=== PATIENT | female | born 1965 | race Caucasian/White ===

== ENCOUNTER 2017-09-27 16:25 | Emergency (ER) | payer OTHER ==
[2017-09-27 16:35] VITALS: TEMP 98.3
--- NOTE | 2017-09-27 17:33 | ED PDOC ---
HPI: Abdomen Time Seen by Provider: 09/27/17 16:51 Chief Complaint (Nursing): Abdominal Pain Chief Complaint (Provider): Abdominal pain History Per: Patient History/Exam Limitations: no limitations Onset/Duration Of Symptoms: Days (2) Additional Complaint(s): Pt reports RLQ pain X 1 month, intermittent, worsening pain X 2 days, lasts couple seconds and resolves. Denies fever, nausea, vomiting, constipation, diarrhea, vaginal discharge, dysuria, hematuria. Currently on menses. Past Medical History Reviewed: Nursing Documentation, Vital Signs Vital Signs: Last Vital Signs Temp 98.3 F 09/27/17 16:32 Pulse 75 09/27/17 16:32 Resp 16 09/27/17 16:32 BP 149/93 H 09/27/17 16:32 Pulse Ox 100 09/27/17 16:32 - Medical History PMH: No Chronic Diseases - Surgical History Surgical History: Other surgeries: Tubal ligation - Family History Family History: States: Unknown Family Hx - Living Arrangements Living Arrangements: With Family - Social History Current smoker - smoking cessation education provided: No Alcohol: None - Allergies Allergies/Adverse Reactions: Allergies Allergy/AdvReac Type Severity Reaction Status Date / Time No Known Allergies Allergy Verified 09/27/17 16:32 Review of Systems Constitutional: Negative for: Fever, Chills Cardiovascular: Negative for: Chest Pain, Palpitations Respiratory: Negative for: Cough, Shortness of Breath Gastrointestinal: Positive for: Abdominal Pain. Negative for: Nausea, Vomiting , Diarrhea Genitourinary Female: Negative for: Dysuria, Hematuria, Vaginal Discharge, Pelvic Pain, Rash Musculoskeletal: Negative for: Neck Pain, Back Pain Skin: Negative for: Rash, Lesions Neurological: Negative for: Weakness, Numbness, Headache, Dizziness Physical Exam - Reviewed Nursing Documentation Reviewed: Yes Vital Signs Reviewed: Yes - Physical Exam Appears: Positive for: Well, No Acute Distress Head Exam: Positive for: ATRAUMATIC, NORMAL INSPECTION Skin: Positive for: Normal Color, Warm, Dry Eye Exam: Positive for: Normal appearance, EOMI, PERRL Cardiovascular/Chest: Positive for: Regular Rate, Rhythm Respiratory: Positive for: Normal Breath Sounds Gastrointestinal/Abdominal: Positive for: Normal Exam, Bowel Sounds, Soft. Negative for: Tenderness, Guarding, Rebound Back: Positive for: Normal Inspection. Negative for: L CVA Tenderness, R CVA Tenderness Neurologic/Psych: Positive for: Alert, Oriented - ECG O2 Sat by Pulse Oximetry: 100 Medical Decision Making Medical Decision Makin yo female with intermittent RLQ pain. - labs - pelvic ultrasound - CT abd/pelvis - Morphine Disposition - Disposition
[2017-09-27 17:42] LABS: BASO % 0.6 % (0.0-2.0); EOS # 0.2 K/uL (0.0-0.7); EOS % 3.3 % (0.0-4.0); HEMOGLOBIN 12.6 g/dL (12.0-16.0); LYMPH # 2.5 K/uL (1.0-4.3); MEAN CELL VOLUME 88.5 fl (81.0-99.0); MEAN CORPUSCULAR HEMOGLOBIN 29.4 pg (27.0-31.0); MEAN CORPUSCULAR HGB CONC 33.3 g/dL (33.0-37.0); MEAN PLATELET VOLUME 9.9 fl (7.2-11.7); MONO # 0.3 K/uL (0.0-0.8); MONO % 4.9 % (0.0-10.0); NEUT # 3.2 K/uL (1.8-7.0); NEUT % 51.2 % (50.0-75.0); RBC 4.29 Mil/uL (3.80-5.20); RED CELL DISTRIBUTION WIDTH 13.5 % (11.5-14.5); WHITE BLOOD COUNT 6.3 K/uL (4.8-10.8)
[2017-09-27 17:45] LABS: URINE BILIRUBIN NEGATIVE (NEGATIVE); URINE BLOOD MODERATE (NEGATIVE); URINE CLARITY CLEAR (Clear); URINE COLOR STRAW (YELLOW); URINE GLUCOSE (UA) NEG (Normal); URINE LEUKOCYTE ESTERASE NEG Leu/uL (Negative); URINE PROTEIN NEGATIVE (NEGATIVE); URINE UROBILINOGEN 0.2-1.0 mg/dL (0.2-1.0)
[2017-09-27 17:51] LABS: ALB/GLOB RATIO 1.2 (1.0-2.1); ALBUMIN 4.1 g/dL (3.5-5.0); ALT/SGPT 44 U/L (9-52); AST/SGOT 33 U/L (14-36); BLOOD UREA NITROGEN 12 mg/dl (7-17); CALCIUM 8.9 mg/dL (8.4-10.2); GFR AFRICAN-AMERICAN > 60; GFR NON-AFRICAN AMERICAN > 60
[2017-09-27 18:06] LABS: PARTIAL THROMBOPLASTIN TIME 29.7 Seconds (25.6-37.1); PROTHROMBIN TIME 10.5 Seconds (9.8-13.1)
[2017-09-27] MEDS ORDERED: Iohexol 300 100 ML IJ ONE (18:13)
[2017-09-27] MEDS ORDERED: Sodium Chloride 0.9% 100 ML ONE (18:13)
--- NOTE | 2017-09-27 19:16 | CT ---
EXAM: CT Abdomen and Pelvis With Intravenous Contrast EXAM DATE/TIME: 09/27/2017 5:26 PM CLINICAL HISTORY: 52 years old, female; Pain; Abdominal pain; Localized; Right lower quadrant (rlq); Additional info: Rlq pain TECHNIQUE: Axial computed tomography images of the abdomen and pelvis with intravenous contrast. All CT scans at this facility use at least one of these dose optimization techniques: automated exposure control; mA and/or kV adjustment per patient size (includes targeted exams where dose is matched to clinical indication); or iterative reconstruction. Coronal and sagittal reformatted images were created and reviewed. COMPARISON: There are no prior studies for comparison. FINDINGS: Lung bases: Heart size is normal. There is a small hiatal hernia. There is minimal atelectasis/scarring at the lung bases. ABDOMEN: Liver: There is fatty infiltration of the liver. Gallbladder and bile ducts: unremarkable Pancreas: unremarkable Spleen: unremarkable Adrenals: unremarkable Kidneys and ureters: unremarkable Stomach and bowel: Stomach is partially distended. Rotation is normal. There is no small bowel obstruction. Ileocecal region is unremarkable. Appendix and terminal ileum are unremarkable.Colon is incompletely distended which limits evaluation. PELVIS: Appendix: See stomach and bowel Bladder: unremarkable Reproductive: Uterus is enlarged 17 x 12 x 10 cm.. Contours are nodular. There are multiple enhancing masses. There are small foci of hypervascularity within the myometrium. Adnexa are unremarkable.A vaginal tampon is in place. ABDOMEN and PELVIS: Intraperitoneal space: There is no free air or free fluid. Bones/joints: There are no acute osseous abnormalities. Soft tissues: There is a fat-containing umbilical hernia. Vasculature: Vascular structures are unremarkable. Lymph nodes: There is no pathologic adenopathy. IMPRESSION: Enlarged fibroid uterus; fatty liver; no acute solid visceral abnormality; no CT findings of appendicitis Additional nonemergent findings as described above.
--- NOTE | 2017-09-27 19:16 | ED PDOC ---
- Laboratory Results Result Diagrams: 09/27/17 17:38 09/27/17 17:38 - ECG O2 Sat by Pulse Oximetry: 100 Medical Decision Making Medical Decision Makin:00 Patient care endorsed from Dr. Taylor to Dr. Styles pending CT / US results and reevaluation. 19:15 CT Abd / Pelvis FINDINGS: Lung bases: Heart size is normal. There is a small hiatal hernia. There is minimal atelectasis/scarring at the lung bases. ABDOMEN: Liver: There is fatty infiltration of the liver. Gallbladder and bile ducts: unremarkable Pancreas: unremarkable Spleen: unremarkable Adrenals: unremarkable Kidneys and ureters: unremarkable Stomach and bowel: Stomach is partially distended. Rotation is normal. There is no small bowel obstruction. Ileocecal region is unremarkable. Appendix and terminal ileum are unremarkable. Colon is incompletely distended which limits evaluation. PELVIS: Appendix: See stomach and bowel Bladder: unremarkable Reproductive: Uterus is enlarged 17 x 12 x 10 cm.. Contours are nodular. There are multiple enhancing masses. There are small foci of hypervascularity within the myometrium. Adnexa are unremarkable.A vaginal tampon is in place. ABDOMEN and PELVIS: Intraperitoneal space: There is no free air or free fluid. Bones/joints: There are no acute osseous abnormalities. Soft tissues: There is a fat-containing umbilical hernia. Vasculature: Vascular structures are unremarkable. Lymph nodes: There is no pathologic adenopathy. IMPRESSION: Enlarged fibroid uterus; fatty liver; no acute solid visceral abnormality; no CT findings of appendicitis 19:49 US Abd / Pelvis FINDINGS: Bladder: Bladder is partially distended. Uterus: Uterus measures at least 16 x 12 x 11 cm. Texture is diffusely heterogeneous. Visualized portion of the endometrium is normal in width, 5 mm in thickness. There is a 10.4 x 8.4 x 8.3 cm fundal fibroid. Right ovary: Right ovary measures approximately 2.9 x 2 x 2.4 cm.There are multiple small follicles. There is intraovarian blood flow. Left ovary: Left ovary measures approximately 2.1 x 1.1 x 2 cm.There is expected blood flow on Doppler imaging Briefly: There is no free fluid. IMPRESSION: Enlarged fibroid uterus; no torsion 20:[address] / US results discussed with patient. 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 Final diagnosis is uterine fibroids, which was also discussed with the patient. All questions answered at this time. Scribe Attestation: Documented by Angelica Polo, acting as a scribe for Uziel Styles MD. Provider Scribe Attestation: All medical entries made by the Scribe were at my direction and personally dictated by me. I have reviewed the chart and agree that the record accurately reflects my personal performance of the history, physical exam, medical decision making, and the department course for this patient. I have also personally directed, reviewed, and agree with the discharge instructions and disposition. Disposition Counseled Patient/Family Regarding: Studies Performed, Diagnosis, Need For Followup - Clinical Impression Clinical Impression: Fibroid uterus - POA Present On Arrival: None - Disposition [facility] Manish Zepeda MD [Staff Provider] - Disposition: Routine/Home Disposition Time: 20:50 Condition: STABLE Additional Instructions: NADEEN MAY, thank you for letting us take care of you today. Your provider was Uziel Styles MD and you were treated for RT LOWER ABD PAIN. The emergency medical care you received today was directed at your acute symptoms. If you were prescribed any medication, please fill it and take as directed. It may take several days for your symptoms to resolve. Return to the Emergency Department if your symptoms worsen, do not improve, or if you have any other problems. Please contact your doctor or call one of the physicians/clinics you have been referred to that are listed on the Patient Visit Information form that is included in your discharge packet. Bring any paperwork you were given at discharge with you along with any medications you are taking to your follow up visit. Our treatment cannot replace ongoing medical care by a primary care provider outside of the emergency department. Thank you for allowing the [facility] team to be part of your care today. If you had an X-Ray or CT scan: A Radiologist will review the ED reading if any change in treatment is needed we will contact you. If you had a blood, urine, or wound culture: It will take several days for the results, if any change in treatment is needed we will contact you. Prescriptions: Naproxen [Naprosyn] 500 mg PO Q12 #14 tab Instructions: Uterine Fibroids Forms: [employer] (Mexican)
--- NOTE | 2017-09-27 19:49 | US ---
EXAM: US Us Pelvis Endovaginal Duplex Ovaries EXAM DATE/TIME: 09/27/2017 7:25 PM CLINICAL HISTORY: 52 years old, female; Pain; Abdominal pain; Right lower quadrant; Prior surgery; Surgery date: 6+ months; Surgery type: C section years ago; Additional info: Rlq pain; LMP 09/26/17 TECHNIQUE: Real-time ultrasound of the us pelvis endovaginal duplex ovaries with image documentation. COMPARISON: CT - ABD PELVIS IV CONTRAST ONLY 2017-09-27 18:22 FINDINGS: Bladder: Bladder is partially distended. Uterus: Uterus measures at least 16 x 12 x 11 cm. Texture is diffusely heterogeneous. Visualized portion of the endometrium is normal in width, 5 mm in thickness. There is a 10.4 x 8.4 x 8.3 cm fundal fibroid. Right ovary: Right ovary measures approximately 2.9 x 2 x 2.4 cm.There are multiple small follicles. There is intraovarian blood flow. Left ovary: Left ovary measures approximately 2.1 x 1.1 x 2 cm.There is expected blood flow on Doppler imaging Briefly: There is no free fluid. IMPRESSION: Enlarged fibroid uterus; no torsion
[2017-09-27 20:51] VITALS: BP 152/94; PULSE 76; RESP 17
[2017-09-27 20:53] VITALS: O2SAT 100
== END 2017-09-27 20:53 | disposition home or self-care (01) ==
LOC: H.ER 16:25
DX: D25.9 Leiomyoma of uterus, unspecified (principal); K76.0 Fatty (change of) liver, not elsewhere classified
CPT/HCPCS: 74177; 76856; 80053; 81003; 81025; 85025; 85610; 85730; 96374; 99284; J2270; Q9967